=== PATIENT | female | born 2000 | race Caucasian/White ===

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

== ENCOUNTER 2018-06-20 12:14 | Emergency (ER) | payer SELFPAY ==
[~2018-06-20] VITALS: Ht 170.2 cm; Wt 65.8 kg
[~2018-06-20 12:14] MED LIST changes: -EPIN0.3A4 IJ; +EPIPEN 2-P0.3 MG/0.3 IJ
[2018-06-20 12:42] LABS: BILIRUBIN,URINE NEGATIVE (NEG); CLARITY,URINE CLEAR; COLOR,URINE YELLOW; NITRITE,URINE NEGATIVE (NEG); PROTEIN,URINE NEGATIVE (NEG-TRACE); UROBILINOGEN,URINE 0.2 mg/dL (0.2 mg/dL)
[2018-06-20 12:46] LABS: U PREG PATIENT POSITIVE (NEG)
[2018-06-20 13:02] LABS: SQUAMOUS EPITHELIAL CELL,UR FEW /LPF
[2018-06-20 13:03] LABS: BACTERIA,URINE 0 /HPF (0-FEW); RBC,URINE 0 /HPF (0-2); TRICHOMONAS,URINE PRESENT; WBC,URINE 0 /HPF (0-4)
[2018-06-20] MEDS ORDERED: metroNIDAZOLE 500 MG TABLET PO ONE (13:30)
[2018-06-20] MEDS ORDERED: cefTRIAXone IM 250 MG VIAL IM ONE (13:30)
[2018-06-20] MEDS ORDERED: AZITHROMYCIN 250 MG TABLET. PO ONE (13:30)
[2018-06-20 13:50] LABS: BASO % 0 % (0-3); EOS # 0.1 x10^3/uL (0.0-0.7); EOS % 1 % (0-3); HEMATOCRIT 35.3 % (36.0-47.0); HEMOGLOBIN 12.6 g/dL (12.0-15.5); LYMPH # 2.3 x10^3/uL (1.0-4.8); LYMPH % 23 % (24-48); MEAN CORPUSCULAR HEMOGLOBIN 32 pg (25-35); MEAN CORPUSCULAR HGB CONC 36 g/dL (31-37); MEAN CORPUSCULAR VOLUME 91 fL (79-100); MONO # 0.6 x10^3/uL (0.0-1.1); MONO % 7 % (0-9); NEUT # 6.7 x10^3uL (1.8-7.7); NEUT % 69 % (31-73); PLATELET COUNT 247 x10^3/uL (140-400); RED BLOOD COUNT 3.89 x10^6/uL (3.50-5.40); RED CELL DISTRIBUTION WIDTH 13.5 % (11.5-14.5); WHITE BLOOD COUNT 9.8 x10^3/uL (4.0-11.0)
[2018-06-20 13:54] LABS: CALCIUM 8.9 mg/dL (8.5-10.1); CREATININE 0.5 mg/dL (0.6-1.0); GFR 157.3; POTASSIUM 3.6 mmol/L (3.5-5.1)
[2018-06-20 14:00] LABS: ALBUMIN 3.1 g/dL (3.4-5.0); ALBUMIN/GLOBULIN RATIO 1.1 (1.0-1.7); TOTAL BILIRUBIN 0.2 mg/dL (0.2-1.0); TOTAL PROTEIN 5.8 g/dL (6.4-8.2)
--- NOTE | 2018-06-20 16:35 | RAD ---
OB ultrasound less than 14 weeks and transvaginal OB ultrasound HISTORY: and vaginal bleeding Sonographic examination of the was performed in transabdominal and endovaginal technique and multiple static images were obtained. OB ultrasound less than 14 weeks transabdominal: The uterus and ovaries are not well seen by transvaginal technique. There is an intrauterine the crown-rump length of 40.1 cm corresponds to 11 weeks 0 day gestational age. The heartbeat is confirmed at 169 bpm. Transvaginal OB ultrasound: There is a crescent hypoechoic area consistent subchondral hemorrhage that measures 2.2 x 1.7 x 0.7 cm. An anterior contraction is seen. There is no free fluid. The right ovary appears normal with normal blood flow measures 2.5 x 1.6 x 2.4 cm. Left ovary is not seen. Estimated size by ultrasound 11 weeks 0 days corresponds with a estimated confinement of January 09, 2019. The LMP of 04/11/2018 corresponds to 10 weeks 0 day gestational age and estimated date of confinement of 01/16/2019. The maternal cervix appears normal. IMPRESSION: 1. Single live intrauterine at 11 weeks 0 days gestational age. Size compared to LMP is within one standard deviation. 2. Subchorionic hemorrhage. A short-term follow-up ultrasound should be performed if clinically indicated otherwise a structural survey would be performed at 18-21 weeks gestational age. Electronically signed by: Arya Ulrich III, MD (06/20/2018 4:32 PM) [facility]
--- NOTE | 2018-06-20 16:57 | PHYS DOC ---
Past Medical History Past Medical History: Asthma, Other Additional Past Medical Histor: VASOVAGAL SYNCOPE Past Surgical History: Tonsillectomy Additional Past Surgical Histo: ORAL Alcohol Use: None Drug Use: None Adult General Chief Complaint Chief Complaint: VAGINAL BLEEDING HPI HPI Patient is a 18 year old female with history of asthma who presents today complaining of vaginal bleeding/spotting that began this morning. Patient denies any urgency frequency dysuria. Denies any concerns for STDs. She states she has slight abdominal cramping. She is a 1 para 0. Review of Systems Review of Systems Constitutional: Denies fever or chills [] Eyes: Denies change in visual acuity, redness, or eye pain [] HENT: Denies nasal congestion or sore throat [] Respiratory: Denies cough or shortness of breath [] Cardiovascular: No additional information not addressed in HPI [] GI: Reports vaginal bleeding in , abdominal cramping, denies nausea, vomiting, bloody stools or diarrhea [] : Denies dysuria or hematuria [] Musculoskeletal: Denies back pain or joint pain [] Integument: Denies rash or skin lesions [] Neurologic: Denies headache, focal weakness or sensory changes [] All other systems were reviewed and found to be within normal limits, except as documented in this note. Current Medications Current Medications Current Medications Medications (Trade) Dose Ordered Sig/Rylee Start Time Stop Time Status Last Admin Dose Admin Azithromycin (Zithromax) 1,000 mg 1X ONCE 06/20/18 13:30 06/20/18 13:31 DC 06/20/18 13:44 1,000 MG Ceftriaxone Sodium (Rocephin Im) 250 mg 1X ONCE 06/20/18 13:30 06/20/18 13:31 DC 06/20/18 13:44 250 MG Metronidazole (Flagyl) 2,000 mg 1X ONCE 06/20/18 13:30 06/20/18 13:31 DC 06/20/18 13:44 2,000 MG Allergies Allergies Allergies Coded Allergies Type Severity Reaction Last Updated Verified peanut Allergy Severe Shortness of Air 06/20/18 Yes latex Allergy Intermediate Rash 06/20/18 Yes nickel Allergy Intermediate RASH 06/20/18 Yes Physical Exam Physical Exam Constitutional: Well developed, well nourished, no acute distress, non-toxic appearance. [] HENT: Normocephalic, atraumatic, bilateral external ears normal, oropharynx moist, no oral exudates, nose normal. [] Eyes: PERRLA, EOMI, conjunctiva normal, no discharge. [] Neck: Normal range of motion, no tenderness, supple, no stridor. [] Cardiovascular:Heart rate regular rhythm, no murmur [] Lungs & Thorax: Bilateral breath sounds clear to auscultation [] Abdomen: Bowel sounds normal, soft, no tenderness, no masses, no pulsatile masses. [] Pelvic exam External pelvic appears normal, cervix is visualized and closed, no CMT, trace amount of brownish discharge noted in the vaginal vault. No adnexal tenderness. Skin: Warm, dry, no erythema, no rash. [] Back: No tenderness, no CVA tenderness. [] Extremities: No tenderness, no cyanosis, no clubbing, ROM intact, no edema. [] Neurologic: Alert and oriented X 3, normal motor function, normal sensory function, no focal deficits noted. [] Psychologic: Affect normal, judgement normal, mood normal. [] Current Patient Data Vital Signs Vital Signs Date Time Temp Pulse Resp B/P (MAP) Pulse Ox O2 Delivery O2 Flow Rate FiO2 06/20/18 17:29 98.1 88 16 118/58 (78) 99 Room Air 98.1 Lab Values Laboratory Tests Test 06/20/18 12:21 06/20/18 13:25 Urine Collection Type Unknown Urine Color Yellow Urine Clarity Clear Urine pH 7.0 Urine Specific [place] <=1.005 Urine Protein Negative mg/dL (NEG-TRACE) Urine Glucose (UA) Negative mg/dL (NEG) Urine Ketones (Stick) Negative mg/dL (NEG) Urine Blood Negative (NEG) Urine Nitrite Negative (NEG) Urine Bilirubin Negative (NEG) Urine Urobilinogen Dipstick 0.2 mg/dL (0.2 mg/dL) Urine Leukocyte Esterase Negative (NEG) Urine RBC 0 /HPF (0-2) Urine WBC 0 /HPF (0-4) Urine Squamous Epithelial Cells Few /LPF Urine Bacteria 0 /HPF (0-FEW) Urine Trichomonas Present Urine Test Positive (NEG) White Blood Count 9.8 x10^3/uL (4.0-11.0) Red Blood Count 3.89 x10^6/uL (3.50-5.40) Hemoglobin 12.6 g/dL (12.0-15.5) Hematocrit 35.3 % (36.0-47.0) L Mean Corpuscular Volume 91 fL (79-100) Mean Corpuscular Hemoglobin 32 pg (25-35) Mean Corpuscular Hemoglobin Concent 36 g/dL (31-37) Red Cell Distribution Width 13.5 % (11.5-14.5) Platelet Count 247 x10^3/uL (140-400) Neutrophils (%) (Auto) 69 % (31-73) Lymphocytes (%) (Auto) 23 % (24-48) L Monocytes (%) (Auto) 7 % (0-9) Eosinophils (%) (Auto) 1 % (0-3) Basophils (%) (Auto) 0 % (0-3) Neutrophils # (Auto) 6.7 x10^3uL (1.8-7.7) Lymphocytes # (Auto) 2.3 x10^3/uL (1.0-4.8) Monocytes # (Auto) 0.6 x10^3/uL (0.0-1.1) Eosinophils # (Auto) 0.1 x10^3/uL (0.0-0.7) Basophils # (Auto) 0.0 x10^3/uL (0.0-0.2) Maternal Serum HCG Beta Subunit 94166 mIU/mL (0-5) H Sodium Level 135 mmol/L (136-145) L Potassium Level 3.6 mmol/L (3.5-5.1) Chloride Level 104 mmol/L (98-107) Carbon Dioxide Level 26 mmol/L (21-32) Anion Gap 5 (6-14) L Blood Urea Nitrogen 10 mg/dL (7-20) Creatinine 0.5 mg/dL (0.6-1.0) L Estimated GFR (Cockcroft-Gault) 157.3 BUN/Creatinine Ratio 20 (6-20) Glucose Level 83 mg/dL (70-99) Calcium Level 8.9 mg/dL (8.5-10.1) Total Bilirubin 0.2 mg/dL (0.2-1.0) Aspartate Amino Transferase (AST) 14 U/L (15-37) L Alanine Aminotransferase (ALT) 19 U/L (14-59) Alkaline Phosphatase 50 U/L (46-116) Total Protein 5.8 g/dL (6.4-8.2) L Albumin 3.1 g/dL (3.4-5.0) L Albumin/Globulin Ratio 1.1 (1.0-1.7) Laboratory Tests 06/20/18 13:25 Laboratory Tests 06/20/18 13:25 Microbiology 06/20/18 Wet Prep - Final, Complete EKG EKG [] Radiology/Procedures Radiology/Procedures []PROCEDURE: OB <14 WKS W/TV OB ultrasound less than 14 weeks and transvaginal OB ultrasound HISTORY: and vaginal bleeding Sonographic examination of the was performed in transabdominal and endovaginal technique and multiple static images were obtained. OB ultrasound less than 14 weeks transabdominal: The uterus and ovaries are not well seen by transvaginal technique. There is an intrauterine the crown-rump length of 40.1 cm corresponds to 11 weeks 0 day gestational age. The heartbeat is confirmed at 169 bpm. Transvaginal OB ultrasound: There is a crescent hypoechoic area consistent subchondral hemorrhage that measures 2.2 x 1.7 x 0.7 cm. An anterior contraction is seen. There is no free fluid. The right ovary appears normal with normal blood flow measures 2.5 x 1.6 x 2.4 cm. Left ovary is not seen. Estimated size by ultrasound 11 weeks 0 days corresponds with a estimated confinement of January 09, 2019. The LMP of 04/11/2018 corresponds to 10 weeks 0 day gestational age and estimated date of confinement of 01/16/2019. The maternal cervix appears normal. IMPRESSION: 1. Single live intrauterine at 11 weeks 0 days gestational age. Size compared to LMP is within one standard deviation. 2. Subchorionic hemorrhage. A short-term follow-up ultrasound should be performed if clinically indicated otherwise a structural survey would be performed at 18-21 weeks gestational age. Electronically signed by: Katerina Campbell III, MD (06/20/2018 4:32 PM) [facility] DICTATED and SIGNED BY: KATERINA CAMPBELL III, MD DATE: 06/20/18 7076 Course & Med Decision Making Course & Med Decision Making Pertinent Labs and Imaging studies reviewed. (See chart for details) This is a 18-year-old female patient presenting to the ED today with vaginal bleeding in . She is a 1 para 0. Positive urine hCG, urine analysis is noted for Trichomonas. Patient was given Flagyl Rocephin and azithromycin in the ED. Wet prep noted for bacterial vaginosis. Blood group O positive. Beta hCG 92,493 OB ultrasound noted for single IUP 11 weeks 0 days HR 169. Also noted for some Subchorionic hemorrhage. Short-term follow-up ultrasound recommended. Patient provided instructions to follow-up with her [facility] for outpatient ultrasound. Dragon Disclaimer Dragon Disclaimer This electronic medical record was generated, in whole or in part, using a voice recognition dictation system. Departure Departure Impression: Primary Impression: Subchorionic hemorrhage in first trimester Additional Impressions: Trichomonas vaginitis Threatened Bacterial vaginosis Disposition: HOME, SELF-CARE Condition: STABLE Referrals: NO PCP (PCP) MIGUELANGEL YARBROUGH MD Follow-up in 2 days Patient Instructions: Bacterial Vaginosis, [id number], Subchorionic Hematoma , Threatened Miscarriage, [id number], Trichomoniasis-Brief Additional Instructions: You were evaluated in the emergency room for vaginal bleeding in . Please do not have any sexual intercourse until you're seen by the [facility]. Do not do any strenuous activities. UA positive for Trichomonas, this is a sexually transmitted disease. We treated you in the emergency room, contact all your sex partners, let them know you tested positive for Trichomonas and ask them to seek treatment too. Do not have sex with them until they are treated. He also have bacterial vaginosis, this is not a sexually transmitted diseases. It's treated with Flagyl. We put you on the medication, ensure you complete them. Scripts Metronidazole (FLAGYL) 500 Mg Tablet 1 TAB PO BID, #10 TAB Prov: RADHA FARIA RHONDA 06/20/18 Attending Signature Attending Signature I have reviewed the PA/MATHEMATICAL PHYSICIST's note and plan of care. I was available for consultation as needed during the patient's visit in the emergency department. I agree with the clinical impression, plan, and disposition. Problem Qualifiers Primary Impression: Subchorionic hemorrhage in first trimester Fetus number: single or unspecified fetus Qualified Codes: O41.8X10 - Other specified disorders of amniotic fluid and membranes, first trimester, not applicable or unspecified; O46.8X1 - Other antepartum hemorrhage, first trimester ALEXAKavehRADHA APRN Jun 20, 2018 16:57 MARIA DE JESUS SMALL DO Jun 23, 2018 20:00
[2018-06-20 17:29] VITALS: BP 118/58
[2018-06-20] MEDS ORDERED: METR500T PO (17:47)
== END 2018-06-20 17:50 | disposition home or self-care (01) ==
LOC: ER 12:14
DX: O20.0 Threatened abortion (principal); O23.591 Infection of other part of genital tract in pregnancy, first trimester; B96.89 Other specified bacterial agents as the cause of diseases classified elsewhere; O99.511 Diseases of the respiratory system complicating pregnancy, first trimester; J45.909 Unspecified asthma, uncomplicated; Z90.89 Acquired absence of other organs; Z91.010 Allergy to peanuts; Z91.040 Latex allergy status; Z91.048 Other nonmedicinal substance allergy status; Z3A.11 11 weeks gestation of pregnancy
CPT/HCPCS: 36415; 76801; 76817; 80053; 81001; 81025; 84702; 85025; 86850; 86900; 86901; 96372; 99284; J0696; Q0111; Q0144

== ENCOUNTER → 2021-05-01 | Outpatient (CLI) | payer MEDICAID ==
[~2021-05-01] MED LIST changes: +ALBU2.5V8 IH; +METR500T PO; -PROAIR HFA8.5 GM IH
--- NOTE | 2021-05-01 16:20 | KCIC ---
3 views of each knee 05/01/2021 2:00 PM Indication: Reason: BILATERAL KNEE PAIN / Spl. Instructions: Bilateral knee pain for many yrs. L>R. N o surgical hx. / History: Comparison: None Findings: There is no acute fracture or dislocation. Articular surfaces are uninterupted and smooth. Soft tissues are unremarkable. Impression: No evidence of acute osseous abnormality. Electronically signed by: Igor Torrez MD (05/01/2021 4:18 PM) [id number]
== END ==
LOC: KCIC 13:24
PROVIDERS: ATTEND Family Medicine
DX: M25.561 Pain in right knee (principal); M25.562 Pain in left knee
CPT/HCPCS: 73562-50

== ENCOUNTER → 2021-10-11 | Outpatient (CLI) | payer MEDICAID ==
--- NOTE | 2021-10-11 14:14 | KCIC ---
EXAM: LEFT KNEE, 3 VIEWS. HISTORY: Left knee pain. COMPARISON: 05/01/2021. FINDINGS: No fractures are identified. Joint spaces are maintained. Alignment is normal. There is no joint effu sherie. IMPRESSION: 1. No fracture or joint effusion. Electronically signed by: Kurt Chu MD (10/11/2021 2:12 PM) [id number]
== END ==
LOC: KCIC 12:43
PROVIDERS: ATTEND Nurse Practitioner Family
DX: M25.562 Pain in left knee (principal)
CPT/HCPCS: 73562